=== PATIENT | female | born 1955 | race Caucasian/White ===

== ENCOUNTER 2024-04-07 15:30 | Emergency (ER) | payer MEDICARE, OTHER ==
[2024-04-07 15:40] VITALS: BP 146/65; PULSE 82; RESP 18; TEMP 98.2; BMI 21.6
== END 2024-04-07 17:02 | disposition home or self-care (01) ==
LOC: JERFT 15:30
DX: S80.11XA Contusion of right lower leg, initial encounter (principal); W20.8XXA Other cause of strike by thrown, projected or falling object, initial encounter
CPT/HCPCS: 99283-25